=== PATIENT | female | born 2000 | race Asian ===

== ENCOUNTER 2023-05-09 07:59 | Outpatient (REF) | payer BC, SELFPAY ==
--- NOTE | ~2023-05-09 | US_ITS ---
EXAMINATION: US PELVIS CLINICAL INFORMATION: Pelvic pain COMPARISON: None available. TECHNIQUE: Ultrasound of the pelvis is performed using both transabdominal and transvaginal transducers along with Doppler. Transvaginal imaging is performed due to inadequate visualization transabdominally. Technical limitations and pain Limited exam. FINDINGS: Uterus: The uterus is anteverted and measures 7.9 x 3.9 cm. Linear echogenic focus noted in the region of the endometrium suggesting IUD though incompletely evaluated. Adnexa: Neither the ovaries was well visualized. No adnexal masses or collections are noted. US/US pelvic and transvaginal IMPRESSION: 1. Technically limited ultrasound. 2. Linear echogenic focus noted in the region of the endometrium suggesting IUD though incompletely evaluated. 3. Neither the ovaries was well visualized. 4. No adnexal masses or collections are noted.
== END 2023-05-09 08:00 | disposition home or self-care (01) ==
LOC: HO.UMASIMG 07:59
PROVIDERS: Visit Provider Family Medicine
DX: R10.2 Pelvic and perineal pain (principal)
CPT/HCPCS: 76830; 76856